=== PATIENT | male | born 2000 | race Caucasian/White ===

== ENCOUNTER 2021-03-05 14:20 | Emergency (ER) | payer OTHER ==
[2021-03-05 14:26] VITALS: BP 103/65; PULSE 75; TEMP 97.8; BMI 27.2
[2021-03-05] MEDS ORDERED: KETOROLAC TROMETHAMINE 30 MG/1 ML VIAL IM ONE (15:11)
[2021-03-05] MEDS ORDERED: KETOROLAC TROMETHAMINE 30 MG/1 ML VIAL ONE (15:17)
== END 2021-03-05 15:38 | disposition home or self-care (01) ==
LOC: JERFT 14:20
PROC: 3E0233Z Introduction of Anti-inflammatory into Muscle, Percutaneous Approach (ICD-10-PCS; principal; 2021-03-05)
DX: H66.92 Otitis media, unspecified, left ear (principal)
CPT/HCPCS: 99284-25